=== PATIENT | female | born 1985 | race African-American/Black ===

== ENCOUNTER 2017-05-15 19:56 | Emergency (ER) | payer OTHER ==
[~2017-05-15] VITALS: Ht 165.1 cm; Wt 83.0 kg
[~2017-05-15 19:56] MED LIST: IBUPROFEN; NAPROSYN500 MG PO; VICODIN 5-5001 EACH PO
[2017-05-15] MEDS ORDERED: MULTI VITAMIN1 EACH PO (20:01)
[2017-05-15 20:30] VITALS: BP 138/88
== END 2017-05-15 20:37 | disposition home or self-care (01) ==
LOC: ER 19:56
DX: S01.01XA Laceration without foreign body of scalp, initial encounter (principal); G43.909 Migraine, unspecified, not intractable, without status migrainosus; W22.8XXA Striking against or struck by other objects, initial encounter; Y93.89 Activity, other specified; Y92.89 Other specified places as the place of occurrence of the external cause; Y99.8 Other external cause status

== ENCOUNTER 2019-04-25 14:33 | Emergency (ER) | payer OTHER ==
[~2019-04-25] VITALS: Ht 165.1 cm; Wt 99.8 kg
[~2019-04-25 14:33] MED LIST changes: +MULTI VITAMIN1 EACH PO
[2019-04-25] MEDS ORDERED: MUCINEX600 MG PO (14:58)
[2019-04-25] MEDS ORDERED: PREDNISONE 20 M20 MG PO (15:45)
[2019-04-25 16:10] VITALS: BP 127/90
== END 2019-04-25 16:07 | disposition home or self-care (01) ==
LOC: ER 14:33
DX: L23.9 Allergic contact dermatitis, unspecified cause (principal); G43.909 Migraine, unspecified, not intractable, without status migrainosus; D25.9 Leiomyoma of uterus, unspecified

== ENCOUNTER 2019-07-16 12:59 | Emergency (ER) | payer OTHER ==
[~2019-07-16] VITALS: Ht 165.1 cm; Wt 77.1 kg
[~2019-07-16 12:59] MED LIST changes: +MUCINEX600 MG PO; +PREDNISONE 20 M20 MG PO
[2019-07-16] MEDS ORDERED: IBUPROFEN 800800 M1 PO (14:05)
[2019-07-16] MEDS ORDERED: AMOXICILLIN500 M1 PO (14:05)
[2019-07-16] MEDS ORDERED: CLARITIN-D 121 EAC1 PO (14:05)
[2019-07-16 14:28] VITALS: BP 122/81
== END 2019-07-16 14:28 | disposition home or self-care (01) ==
LOC: ER 12:59
DX: H66.91 Otitis media, unspecified, right ear (principal); G43.909 Migraine, unspecified, not intractable, without status migrainosus

== ENCOUNTER → 2021-07-14 | Outpatient (CLI) | payer OTHER ==
[~2021-07-14] MED LIST changes: +AMOXICILLIN500 M1 PO; +CLARITIN-D 121 EAC1 PO; +IBUPROFEN 800800 M1 PO
[2021-07-14 12:10] LABS: BASOPHILS 0.4 % (0.0-2.0); EOSINOPHILS 1.9 % (0.0-3.0); HEMATOCRIT 37.1 % (37.0-47.0); HEMOGLOBIN 11.8 gm/dL (12.0-15.0); LYMPHOCYTES 33.6 % (24.0-44.0); MCH 26.9 pg (26.0-34.0); MCHC 31.8 g/dL (28.0-37.0); MCV 84.4 fL (80.0-100.0); MONOCYTES 5.6 % (1.0-8.0); PLATELET COUNT 293 thou/uL (150-400); POLYS 58.5 % (36.0-66.0); RDW 14.6 % (10.5-14.5); WBC 6.8 thou/uL (4.0-11.0)
[2021-07-14 12:34] LABS: ALBUMIN 3.7 g/dL (3.4-5.0); ANION GAP 7 mmol/L (7-16); BUN 13 mg/dL (7-18); CALCIUM 8.5 mg/dL (8.5-10.1); CHLORIDE 104 mmol/L (98-107); CHOLESTEROL 135 mg/dL (<200); CO2 27 mmol/L (21-32); CREATININE 0.7 mg/dL (0.6-1.0); GLUCOSE 88 mg/dL (74-106); HDL CHOLESTEROL 52 mg/dL (>40); LDL CHOLESTEROL 72 mg/dL (<100); POTASSIUM 4.1 mmol/L (3.5-5.1); SGOT 25 U/L (15-37); SGPT 31 U/L (30-65); SODIUM 138 mmol/L (136-145); TC:HDL 2.6 Ratio (Not establshd); TOTAL BILIRUBIN 0.4 mg/dL (0.2-1.0); TOTAL PROTEIN 7.3 g/dL (6.4-8.2); TRIGLYCERIDE 58 mg/dL (<150); VLDL 12 mg/dL (<40)
[2021-07-15 01:06] LABS: GLYCOHEMOGLOBIN (HGB A1C) 5.8 % (4.8-5.6)
== END ==
LOC: LAB 10:40
PROVIDERS: ATTEND Nurse Practitioner
DX: Z00.00 Encounter for general adult medical examination without abnormal findings (principal); E55.9 Vitamin D deficiency, unspecified

== ENCOUNTER → 2021-08-04 | Outpatient (CLI) | payer OTHER | LOC: ULTRA 12:34 → BC 12:34 | PROVIDERS: ATTEND Nurse Practitioner | DX: N63.10 Unspecified lump in the right breast, unspecified quadrant (principal); R92.8 Other abnormal and inconclusive findings on diagnostic imaging of breast ==